=== PATIENT | male | born 2000 | race Caucasian/White ===

== ENCOUNTER 2021-01-04 10:15 | Emergency (ER) | payer BC, SELFPAY ==
[2021-01-04 10:46] VITALS: BP 107/75; PULSE 72; RESP 14; TEMP 37.5; O2SAT 100
--- NOTE | 2021-01-04 11:38 | ED.GENADULT ---
HPI - General Adult General Chief complaint: Urogenital-Male Stated complaint: Back Pain Time Seen by Provider: 01/04/21 11:22 Source: patient, RN notes reviewed and old records reviewed Mode of arrival: ambulatory Limitations: no limitations History of Present Illness HPI narrative: 20 year old male presents to [facility] care with complaints of right flank pain since 1500 yesterday which is sharp and intermittent He repots that he has had no fever no burning with urination, denies any concern for STDs, denies any known injury to his back no incidence of pushing or pulling.Patient reports that walking aggravates his pain, has been taking Tylenol for his discomfort. Onset (ago): day(s) (1) Related Data Home Medications Medication Instructions Recorded Confirmed estradiol 4 mg PO BID 01/04/21 01/04/21 progesterone micronized 40 mg PO HS 01/04/21 01/04/21 Allergies Allergy/AdvReac Type Severity Reaction Status Date / Time No Known Allergies Allergy Verified 01/04/21 10:56 Review of Systems Review of Systems: CONSTITUTIONAL: Denies fever, chills, or sweats. EYES: Denies visual changes, redness, or discharge. ENT: Denies rhinorrhea, congestion, sore throat, or otalgia. CARDIOVASCULAR: Denies chest pain, palpitations, or edema. RESPIRATORY: Denies cough or dyspnea. GASTROINTESTINAL: Denies abdominal pain, nausea, vomiting, or diarrhea. GENITOURINARY: Denies dysuria or hematuria. SKIN: Denies rash or itching. MUSCULOSKELETAL: Positive for right flank area back pain,no joint pain, or myalgia. NEUROLOGIC: Denies headache, numbness, or weakness. PSYCHIATRIC:Positive for anxiety or depression. All systems reviewed & are unremarkable except as noted in HPI and below [facility] Past Medical History Medical History (Updated 01/07/21 @ 13:36 by Parul Lambert NP) Anxiety Asthma states as child Scoliosis Surgical History Surgical History (Updated 01/07/21 @ 13:34 by Parul Lambert NP) No history of previous surgery Family History Family History (Updated 01/07/21 @ 13:35 by Parul Lambert NP) Other No significant family history Social History Social History (Updated 01/07/21 @ 13:36 by Parul Lmabert NP) Smoking status: Never smoker Alcohol intake: never Substance use: current Substance use type: marijuana Living arrangements: with family Gender identity (if verbalized by the patient): Male Additional gender identity comments: taking HRT for gender transition Comments At time of signature, agree with nursing past medical, surgical, social and family history. There is no relevant family history pertinent to the presenting complaint Exam Narrative: GENERAL: Well-appearing, well-nourished, and in no acute distress. HEAD: Normocephalic, atraumatic. EYES: PERRLA and EOMI. ENT: Nares clear, no rhinorrhea or epistaxis. Mucous membranes moist.TM's normal with good light reflex, throat pink with no exudates or lesions or tonsil enlargement NECK: Supple.no lymphadenopathy CHEST: Clear to auscultation. No respiratory distress.SAO2 100% on room air HEART: Regular rate and rhythm. No murmur heard. Normal peripheral pulses. ABDOMEN: Soft, nontender, nondistended, normal active bowel sounds.Right flank pain on exam denies any radiation of pain to abdomen or down into buttock or leg. EXTREMITIES: Normal range of motion. No edema.strong peripheral pulses, moves all extremities with full ROM no tingling or numbness vocalized. SKIN: Warm, dry, no rash. NEURO: No focal deficits. Alert and oriented x3. Course Vital Signs Vital signs: Vital Signs Temperature 37.5 C 01/04/21 10:46 Pulse Rate 72 01/04/21 10:46 Respiratory Rate 14 01/04/21 10:46 Blood Pressure 107/75 01/04/21 10:46 Pulse Oximetry 100 01/04/21 10:46 Temperature 37.5 C 01/04/21 10:46 Pulse Rate 72 01/04/21 10:46 Respiratory Rate 14 01/04/21 10:46 Blood Pressure 107/75 01/04/21 10:46 Pulse Oximetry 10
== END 2021-01-04 11:52 | disposition home or self-care (01) ==
PROVIDERS: Emergency Provider Registered Nurse
DX: R10.9 Unspecified abdominal pain (principal); M41.9 Scoliosis, unspecified
CPT/HCPCS: 81003; 99213; G0463

== ENCOUNTER 2021-02-16 10:10 | Emergency (ER) | payer BC, SELFPAY ==
[2021-02-16 10:28] VITALS: BP 118/71; PULSE 75; RESP 16; TEMP 37.7; O2SAT 100
--- NOTE | 2021-02-16 11:10 | ED.URI ---
HPI - URI/Sore Throat General Chief Complaint: Upper Respiratory Infection Stated Complaint: congestion cough Source: patient Mode of arrival: ambulatory Limitations: no limitations History of Present Illness HPI Narrative: Patient is a 20-year-old who presents with complaints of cough and congestion x1.5 week. He reports facial pain and pressure and intermittent headache. Patient reports he has been out of town last week in [place], [place]. He reports no known Covid exposure, denies being Covid vaccinated. Patient reports feeling poorly after returning home. MD elicited complaint: cough and nasal congestion Related Data Home Medications Medication Instructions Recorded Confirmed estradiol 4 mg PO BID 01/04/21 02/16/21 progesterone micronized 40 mg PO HS 01/04/21 02/16/21 Allergies Allergy/AdvReac Type Severity Reaction Status Date / Time No Known Allergies Allergy Verified 01/04/21 10:56 Review of Systems Review of Systems: CONSTITUTIONAL: Denies fever, chills, or sweats. EYES: Denies visual changes, redness, or discharge. ENT: Reports congestion and facial pain CARDIOVASCULAR: Denies chest pain, palpitations, or edema. RESPIRATORY: Reports cough, denies dyspnea. GASTROINTESTINAL: Denies abdominal pain, nausea, vomiting, or diarrhea. GENITOURINARY: Denies dysuria or hematuria. SKIN: Denies rash or itching. MUSCULOSKELETAL: Denies back pain, joint pain, or myalgia. NEUROLOGIC: Denies headache, numbness, dizziness, or weakness. PSYCHIATRIC: Denies anxiety or depression. [facility], [facility] Past Medical History Medical History Anxiety Asthma states as child Scoliosis Surgical History Surgical History No history of previous surgery Family History Family History Other No significant family history Social History Social History Smoking status: Never smoker Alcohol intake: never Substance use: current Substance use type: marijuana Gender identity (if verbalized by the patient): Male Additional gender identity comments: taking HRT for gender transition Comments At the time of signature, I have reviewed and agree with nursing past medical, surgical, social, and family history unless otherwise noted. Please see nursing chart for further information. There is no relevant family history pertinent to the presenting complaint. Exam Narrative: GENERAL: Well-appearing, well-nourished, and in no acute distress. HEAD: Normocephalic, atraumatic. EYES: EOMI. No redness or drainage. Conjunctiva are normal. ENT: Mucous membranes pink and moist. Nares clear. No rhinorrhea. TMs normal bilaterally. Throat normal. Uvula midline. Maxillary sinus tenderness with palpation. NECK: AROM. Supple. No lymphadenopathy. CHEST: No respiratory distress. HEART: Regular rate and rhythm. EXTREMITIES: Normal range of motion. No edema. SKIN: Warm, dry, no rash. NEURO: No focal deficits. Alert and oriented x3. Gait steady. PSYCH: Normal affect. No signs of depression or anxiety. Course Vital Signs Vital signs: Vital Signs Temperature 37.7 C H 02/16/21 10:28 Pulse Rate 75 02/16/21 10:28 Respiratory Rate 16 02/16/21 10:28 Blood Pressure 118/71 02/16/21 10:28 Pulse Oximetry 100 02/16/21 10:28 Temperature 36.8 C 02/16/21 11:12 Pulse Rate 75 02/16/21 10:28 Respiratory Rate 16 02/16/21 10:28 Blood Pressure 118/71 02/16/21 10:28 Pulse Oximetry 100 02/16/21 10:28 Reviewed MDM - URI/Sore Throat MDM Narrative Medical decision making narrative: Patient's rapid Covid negative at this time. Discussed with patient most likely sinusitis. Patient to be treated with Augmentin. Patient is aware the need to follow-up with PCP in 3 to 5 days if symptoms continue. Amelia
[2021-02-16 11:11] VITALS: TEMP 36.8
[2021-02-16 11:12] VITALS: TEMP 36.8
== END 2021-02-16 12:00 | disposition home or self-care (01) ==
PROVIDERS: Emergency Provider Nurse Practitioner
DX: J32.9 Chronic sinusitis, unspecified (principal); Z20.822 Contact with and (suspected) exposure to COVID-19; M41.9 Scoliosis, unspecified
CPT/HCPCS: 87426; 99213; C9803; G0463

== ENCOUNTER 2021-04-14 08:10 | Emergency (ER) | payer BC, SELFPAY ==
[2021-04-14 08:16] VITALS: BP 142/76; PULSE 82; RESP 20; TEMP 36.9; O2SAT 99
--- NOTE | 2021-04-14 08:51 | ED.GENADULT ---
HPI - General Adult General Chief complaint: Abdominal Pain Stated complaint: left side pain Time Seen by Provider: 04/14/21 08:25 Source: patient and RN notes reviewed Mode of arrival: ambulatory Limitations: no limitations History of Present Illness HPI narrative: Patient presents today complaining of a 6-month history of intermittent left side pain though slightly worse over the last couple of days. Reports intermittent nausea with the pain as well. He currently rates his pain 04/15. States that upon onset of the pain several months ago he tried some acid reflux medication that did not help. He also reports that upon onset of the pain he did follow-up with his PCP who initially instructed him to go to the ER. He did not. Denies diarrhea or vomiting. Denies fever. Reports he has not had a, good bowel movement in the last week. Patient states he only eats fast food, pasta, burgers etc. He does not eat any fruits or vegetables. MD complaint: Left upper quadrant pain Related Data Home Medications Medication Instructions Recorded Confirmed estradiol 4 mg PO BID 01/04/21 04/14/21 progesterone micronized 40 mg PO HS 01/04/21 04/14/21 Allergies Allergy/AdvReac Type Severity Reaction Status Date / Time No Known Allergies Allergy Verified 04/14/21 08:26 Review of Systems Review of Systems: CONSTITUTIONAL: Denies body aches, fever, chills, or sweats. EYES: Denies visual changes, redness, or discharge. ENT: Denies rhinorrhea, congestion, sore throat, or otalgia. CARDIOVASCULAR: Denies chest pain, palpitations, or edema. RESPIRATORY: Denies cough or dyspnea. GASTROINTESTINAL: Denies nausea, vomiting, or diarrhea.+ Left upper quadrant pain GENITOURINARY: Denies dysuria or hematuria. SKIN: Denies rash, itching, or wounds. MUSCULOSKELETAL: Denies back pain, joint pain, or myalgia. NEUROLOGIC: Denies headache, numbness, tingling, or weakness. PSYCH: Denies depression or anxiety. [facility] Past Medical History Medical History Anxiety Asthma states as child Scoliosis Surgical History Surgical History No history of previous surgery Family History Family History Other No significant family history Social History Social History Smoking status: Never smoker Alcohol intake: never Substance use: current Substance use type: marijuana Gender identity (if verbalized by the patient): Male Additional gender identity comments: taking HRT for gender transition Comments At time of signature, I have reviewed and agree with nursing past medical, surgical, social and family history unless otherwise noted. Please see nursing chart for further information. There is no relevant family history pertinent to the presenting complaint Exam Narrative: GENERAL: Well-appearing, well-nourished, and in no acute distress. HEAD: Normocephalic, atraumatic. EYES: EOMI. No redness or drainage. Conjunctivae normal. ENT: Mucous membranes pink and moist. NECK: Normal AROM. CHEST: No respiratory distress. Clear to auscultation. HEART: Regular rate and rhythm. No murmur appreciated. Normal peripheral pulses. ABDOMEN: Soft, nontender, nondistended, normal active bowel sounds.-CVAT MUSCULOSKELETAL: No bony tenderness. EXTREMITIES: Normal range of motion. No edema. SKIN: Warm, dry, no rash. Capillary refill normal. Normal skin turgor. NEURO: No focal deficits. Alert and oriented x3. Gait steady. PSYCH: Normal affect. No signs of depression or anxiety. Course Course Emergency Course: Patient's abdomen is nontender. Discussed with him that he needs to follow-up with his PCP if he needs a referral to GI, or call and make an appointment with GI for his chronic abdominal pain. Instructe
== END 2021-04-14 09:00 | disposition home or self-care (01) ==
PROVIDERS: Emergency Provider Nurse Practitioner
DX: G89.29 Other chronic pain (principal); R10.12 Left upper quadrant pain; M41.9 Scoliosis, unspecified; F12.90 Cannabis use, unspecified, uncomplicated
CPT/HCPCS: 99212; G0463